=== PATIENT | male | born 1990 | race African-American/Black ===

== ENCOUNTER 2017-06-21 13:47 | Outpatient (CLI) | payer OTHER | END 2017-06-21 13:48 | disposition home or self-care (01) | LOC: SC 13:47 | PROVIDERS: ATTEND Internal Medicine Pulmonary Disease | DX: G47.10 Hypersomnia, unspecified (principal); G47.8 Other sleep disorders; R06.83 Snoring | CPT/HCPCS: 99203; 99212 ==

== ENCOUNTER 2017-12-06 20:44 | Outpatient (CLI) | payer OTHER | END 2017-12-06 20:45 | disposition home or self-care (01) | LOC: SC 20:44 | PROVIDERS: ATTEND Internal Medicine Pulmonary Disease | DX: G47.33 Obstructive sleep apnea (adult) (pediatric) (principal) | CPT/HCPCS: 95810 ==

== ENCOUNTER 2017-12-20 14:46 | Outpatient (CLI) | payer OTHER | END 2017-12-20 14:47 | disposition home or self-care (01) | LOC: SC 14:46 | PROVIDERS: ATTEND Internal Medicine Pulmonary Disease | DX: G47.33 Obstructive sleep apnea (adult) (pediatric) (principal) | CPT/HCPCS: 99212; 99213 ==